=== PATIENT | female | born 1950 | race Caucasian/White ===

== ENCOUNTER 2017-07-29 05:38 | Day surgery (SDC) | payer MEDICARE, MEDICAID ==
[2017-07-28 15:36] LABS: BASOPHILS % (AUTO) 0.4 % (0-1); EOSINOPHILS # (AUTO) 0.1 X10'3 (0-0.9); EOSINOPHILS % (AUTO) 1.2 % (0-6); LYMPHOCYTES # (AUTO) 2.6 X10'3 (1.1-4.8); LYMPHOCYTES % (AUTO) 31.8 % (21-51); MEAN CORPUSCULAR HGB CONC 34.7 % (33.0-36.5); MEAN CORPUSCULAR VOLUME 89.2 FL (78-98); MONOCYTES # (AUTO) 0.7 X10'3 (0-0.9); NEUTROPHILS # (AUTO) 4.8 X10'3 (1.8-7.7); NEUTROPHILS % (AUTO) 57.6 % (42-75); PRE OP HEMATOCRIT 44.5 % (35.0-45.0); PRE OP HEMOGLOBIN 15.5 g/dL (12.0-16.0); PRE OP PLATELET COUNT 224 X10'3 (140-440); RED BLOOD COUNT 4.99 X10'6 (4.20-5.60)
[2017-07-28 15:59] LABS: ALBUMIN 4.2 G/DL (3.4-5.0); BLOOD UREA NITROGEN 19 MG/DL (7-18); BUN/CREATININE RATIO 22.9 (6.6-38.0); CALCIUM 10.1 MG/DL (8.5-10.1); CHLORIDE 102 MMOL/L (99-107); CREATININE 0.83 MG/DL (0.40-0.90); PRE OP ANION GAP 11 (8-16); PRE OP BILIRUB, TOTAL 0.3 MG/DL (0.0-1.0); PRE OP GLUCOSE 113 MG/DL (70-104); PRE OP POTASSIUM 3.7 MMOL/L (3.4-5.1); PRE OP SODIUM 143 MMOL/L (135-145); TOTAL CARBON DIOXIDE 29.8 MMOL/L (24-32); TOTAL PROTEIN 7.9 G/DL (6.4-8.2); eGFR 69 ML/MIN
[2017-07-28 16:00] LABS: ALBUMIN/GLOBULIN RATIO 1.1 (1.1-1.5); ALKALINE PHOSPHATASE 84 IU/L (46-116); PRE OP ALT 40 U/L (30-65); PRE OP AST 22 U/L (10-37)
[~2017-07-29] VITALS: Ht 162.6 cm; Wt 85.1 kg
[2017-07-29] VITALS (12 sets, daily range): BP systolic 92–114; BP diastolic 60–75
[~2017-07-29 05:38] MED LIST: EFF25T PO; HYDR25TA4 PO; MELO-100 PO; ZOLP10TA5 PO; ceFAZolin 2gm in dextrose, iso 100 ML IV ONE; famotidine 20mg tablet PO ONE; ringers solution, lacted 1,000 ML IV SCH
[2017-07-29] MEDS ORDERED: LIDOcaine 1% (10mg/ml) 2ml vial ONE (06:07)
[2017-07-29] MEDS ORDERED: BUPIVAcaine/PF 2.5 mg/ml (0.25%) 30ml vial ONE (06:41)
[2017-07-29] MEDS ORDERED: fentaNYL/PF 50MCG/1 ML 2ML syringe ONE (07:16)
[2017-07-29] MEDS ORDERED: MIDAZolam 5mg/5ml vial ONE (07:16)
[2017-07-29] MEDS ORDERED: ROPIVAcaine 0.5% (5mg/ml) 30ml vial ONE (07:17)
[2017-07-29] MEDS ORDERED: propofol inj 20 ML IV ONE (07:19)
[2017-07-29] MEDS ORDERED: dexamethasone sod phosphate 4mg/ml inj. ONE (07:37)
[2017-07-29] MEDS ORDERED: ondansetron/PF 4mg/2ml inj ONE (07:37)
[2017-07-29] MEDS ORDERED: sevoflurane 250ml liquid IH ONE (07:37)
[2017-07-29] MEDS ORDERED: ringers solution, lacted 1,000 ML IV SCH (09:07)
[2017-07-29] MEDS ORDERED: proCHLORperazine 10 MG/2 ml inj IV PRN (09:10)
[2017-07-29] MEDS ORDERED: ondansetron/PF 4mg/2ml inj IV PRN (09:10)
[2017-07-29] MEDS ORDERED: morphine 4 MG/ML inj SYRINge IV PRN ×2 (09:10)
[2017-07-29] MEDS ORDERED: meperidine/PF 50mg/ml syringe IV PRN ×3 (09:10)
[2017-07-29] MEDS ORDERED: HYDROcodone/acetaminophen 10/325mg tab PO PRN (09:40)
== END 2017-07-29 12:00 | disposition home or self-care (01) ==
LOC: PAS 05:38 → ORTHO 4S 10:32 → PAS 12:00
PROVIDERS: ATTEND Orthopaedic Surgery
DX: M75.121 Complete rotator cuff tear or rupture of right shoulder, not specified as traumatic (principal); M19.011 Primary osteoarthritis, right shoulder; M25.711 Osteophyte, right shoulder; M94.211 Chondromalacia, right shoulder; M75.51 Bursitis of right shoulder; G89.18 Other acute postprocedural pain; M75.81 Other shoulder lesions, right shoulder; E66.01 Morbid (severe) obesity due to excess calories; F32.9 Major depressive disorder, single episode, unspecified; Z68.32 Body mass index [BMI] 32.0-32.9, adult; Z79.2 Long term (current) use of antibiotics; Z90.710 Acquired absence of both cervix and uterus; Z90.89 Acquired absence of other organs; Z87.891 Personal history of nicotine dependence; Z72.89 Other problems related to lifestyle; Z96.653 Presence of artificial knee joint, bilateral; Z79.1 Long term (current) use of non-steroidal anti-inflammatories (NSAID); Z98.890 Other specified postprocedural states; Z79.899 Other long term (current) drug therapy
CPT/HCPCS: 29824; 29826; 29827; 36415; 64415; 80053; 85025; 93005; A4565; A6449; C1713; J0690; J1100; J2250; J2405; J2704; J2795; J3010; J3490; J7030; J7120; A7000

== ENCOUNTER 2021-07-14 07:32 | Inpatient (IN) | payer MEDICARE, MEDICAID ==
[2021-07-07 11:10] LABS: BASOPHILS # (AUTO) 0.1 X10'3 (0-0.2); BASOPHILS % (AUTO) 1.5 % (0-1); EOSINOPHILS % (AUTO) 0.8 % (0-6); LYMPHOCYTES # (AUTO) 1.6 X10'3 (1.1-4.8); LYMPHOCYTES % (AUTO) 28.3 % (21-51); MEAN CORPUSCULAR HEMOGLOBIN 29.4 PG (27.0-31.0); MEAN CORPUSCULAR HGB CONC 33.8 g/dL (33.0-36.5); MEAN CORPUSCULAR VOLUME 87.1 FL (78-98); MEAN PLATELET VOLUME 8.3 FL (7.4-10.4); MONOCYTES # (AUTO) 0.6 X10'3 (0-0.9); NEUTROPHILS # (AUTO) 3.3 X10'3 (1.8-7.7); NEUTROPHILS % (AUTO) 59.4 % (42-75); PRE OP HEMATOCRIT 43.3 % (35.0-45.0); PRE OP HEMOGLOBIN 14.6 g/dL (12.0-16.0); PRE OP PLATELET COUNT 230 X10'3 (140-440); RED BLOOD COUNT 4.97 X10'6 (4.20-5.60)
[2021-07-07 11:20] LABS: ALBUMIN 4.1 G/DL (3.4-5.0); ALBUMIN/GLOBULIN RATIO 1.2 (1.1-1.5); ALKALINE PHOSPHATASE 71 IU/L (46-116); BLOOD UREA NITROGEN 24 MG/DL (7-18); BUN/CREATININE RATIO 45.3 (6.6-38.0); CHLORIDE 102 MMOL/L (99-107); CREATININE 0.53 MG/DL (0.40-0.90); PRE OP ALT 33 U/L (30-65); PRE OP ANION GAP 7 (8-16); PRE OP AST 23 U/L (10-37); PRE OP BILIRUB, TOTAL 0.6 MG/DL (0.0-1.0); PRE OP GLUCOSE 101 MG/DL (70-104); PRE OP SODIUM 136 MMOL/L (135-145); TOTAL PROTEIN 7.5 G/DL (6.4-8.2); eGFR > 90 ML/MIN
[2021-07-07 11:32] LABS: PRE OP POTASSIUM 3.2 MMOL/L (3.4-5.1)
[~2021-07-14] VITALS: Ht 162.6 cm; Wt 83.8 kg
[2021-07-14] VITALS (18 sets, daily range): BP systolic 101–129; BP diastolic 60–89
[~2021-07-14 07:32] MED LIST changes: -EFF25T PO; -MELO-100 PO; -ceFAZolin 2gm in dextrose, iso 100 ML IV ONE; +cefazolin/dext.iso 2gm/50ml IV ONE; +tranexamic acid 650mg tablet PO ONE; +vancomycin/NS 1 GM in NS 250 ML IV ONE
[2021-07-14 10:20] LABS: ISTAT ANION GAP 10 (8-12); ISTAT BUN 26 mg/dL (7-18); ISTAT CL 102 mmol/L (99-107); ISTAT CREATININE 0.6 mg/dL (0.6-1.1); ISTAT GLUCOSE 95 mg/dL (70-105); ISTAT HGB 14.6 g/dl (12.0-16.0); ISTAT Hct 43 %PCV (35-48); ISTAT IONIZED CALCIUM 1.26 mmol/L (1.03-1.32); ISTAT NA 142 mmol/L (135-145); ISTAT TOTAL CO2 30 mmol/L (24-32); ISTAT eGFR > 90 ML/MIN; POC BUN/CREATININE RATIO 43.3 (6.6-38.0)
[2021-07-14] MEDS ORDERED: ketorolac trometh. 30mg/ml inj. ONE (12:02)
[2021-07-14] MEDS ORDERED: ROPIVAcaine 0.5% (5mg/ml) 30ml vial ONE ×2 (12:02→14:26)
[2021-07-14] MEDS ORDERED: vancomycin 1,000mg inj ONE (12:11)
[2021-07-14] MEDS ORDERED: midazolam 1 mg/ML 2ml injection ONE ×2 (12:37→13:36)
[2021-07-14] MEDS ORDERED: FENTANYL CITRATE/PF 50 MCG/1 ML VIAL ONE (12:37)
[2021-07-14] MEDS ORDERED: sevoflurane 250ml liquid IH ONE (13:10)
[2021-07-14] MEDS ORDERED: ringers solution, lacted 1,000 ML IV SCH (14:00)
[2021-07-14] MEDS ORDERED: ROPIVAcaine 0.2%/PF PUMP/bolus 545 ML INTERSCALE SCH (14:00)
[2021-07-14] MEDS ORDERED: ondansetron/PF 4mg/2ml inj IV PRN ×2 (14:00→15:10)
[2021-07-14] MEDS ORDERED: morphine 2 MG/ML inj. syringe IV PRN (14:00)
[2021-07-14] MEDS ORDERED: morphine 4 MG/ML inj SYRINge IV PRN (14:00)
[2021-07-14] MEDS ORDERED: meperidine/PF 25mg/ml syringe IV PRN ×3 (14:00)
[2021-07-14] MEDS ORDERED: ROPIVAcaine 0.2% (10 MG/5 ML) BOLUS INJECTION INTERSCALE PRN (14:00)
[2021-07-14] MEDS ORDERED: proCHLORperazine 10 MG/2 ml inj IV PRN (14:00)
[2021-07-14] MEDS ORDERED: ePHEDrine 50MG/ML INJ. ONE (14:26)
[2021-07-14] MEDS ORDERED: dexamethasone sod phosphate 4mg/ml inj. ONE (14:26)
[2021-07-14] MEDS ORDERED: propofol inj 20 ML IV ONE (14:26)
[2021-07-14] MEDS ORDERED: phenylephrine 10mg/ml inj. ONE (14:26)
[2021-07-14] MEDS ORDERED: ondansetron/PF 4mg/2ml inj ONE (14:26)
[2021-07-14] MEDS ORDERED: meperidine/PF 25mg/ml syringe ONE (14:50)
[2021-07-14] MEDS ORDERED: acetaminophen 1,000mg/100ml IV 100 ML IV ONE (14:51)
--- NOTE | 2021-07-14 15:03 | NUR ---
Received from OR via HOSPITAL BED , accompanied by Anesthesiologist DR MOONEY and report given by Anesthesiolgist. PT PRESENTS WITH PIV 18G RIGHT HAND, SHOULDER WRAP WITH PUWDER PACK AND ON-Q READY MARIANN, VSS. Addendum: 07/14/21 at 1524 by Rebecca Cordova RN, RN Amended: Links added.
[2021-07-14] MEDS ORDERED: bisacodyl 10mg suppository rectal RC PRN (15:10)
[2021-07-14] MEDS ORDERED: HYDROmorphone 1 mg/ml syringe IV PRN (15:10)
[2021-07-14] MEDS ORDERED: potassium cl 20mEq in 1/2 NS 1,000 ML IV SCH (15:10)
[2021-07-14] MEDS ORDERED: HYDROmorphone inj. 0.5 MG/0.5 ML DISP.SYRIN IV PRN (15:10)
[2021-07-14] MEDS ORDERED: oxyCODONE IR 5mg (immed. release) tablet PO PRN ×2 (15:10)
[2021-07-14] MEDS ORDERED: HYDROcodone/acetaminophen 10/325mg tab PO PRN (15:10)
[2021-07-14] MEDS ORDERED: magnesium hydroxide 30ml (MOM) UD suspension PO PRN (15:10)
[2021-07-14] MEDS ORDERED: diphenhydrAMINE 25mg capsule PO PRN ×2 (15:10)
[2021-07-14] MEDS ORDERED: acetaminophen 325mg tablet PO PRN (15:10)
[2021-07-14] MEDS ORDERED: zolpidem 5mg tablet PO PRN (15:25)
--- NOTE | 2021-07-14 15:47 | NUR ---
PT IS REFUSING TO STAY IN THE HOSPITAL AND IS ADAMANT ABOUT GOING HOME NOW. DR GIBSON CALLED AND HE WILL BE PUTTING IN ORDERS TO DC PT HOME. Addendum: 07/14/21 at 1602 by Rebecca Cordova RN, RN Amended: Links added.
[2021-07-14] MEDS ORDERED: ceFAZolin/D5W- 1GM premix 50 ML IV SCH (16:00)
--- NOTE | 2021-07-14 16:11 | NUR ---
PT IS REFUSING ON-Q BALL. Addendum: 07/14/21 at 1612 by Rebecca Cordova RN RN Amended: Links added.
--- NOTE | 2021-07-14 16:13 | NUR ---
PT IS SAYING THAT I AM NOT TREATING HER WELL. I EXPLAINED HOW THE ON-Q WORKS AND SHE DOES NOT WANT TO WEAR IT AROUND THE HOUSE. I ESPLAINED THAT WE DO NOT WANT HER TO HAVE PAIN WHEN SHE GOES HOME, I APOLOGIZED FOR ANYTHING THAT I DID OR SAID TO UPSET HER. PT HAS BEEN AGGITATED SINCE WAKING UP IN THE RECOVERY ROOM AND IS UPSET ABOUT DR TALBERT NOT PUTTING IN DC ORDERS FOR HER. Addendum: 07/14/21 at 1616 by Rebecca Cordova RN, RN Amended: Links added.
--- NOTE | 2021-07-14 17:11 | NUR ---
DR GIBSON IN PT ROOM BED 7 RECOVERY TALKING WITH PATIENT. Addendum: 07/14/21 at 1712 by Rebecca Cordova RN, RN Amended: Links added.
--- NOTE | 2021-07-14 17:42 | NUR ---
PT HAS DECIDED AT THIS TIME TO USE THE ON-Q. ON-Q HOOKED UP AND PT HAS BEEN EDUCATED ON HOW TO USE THE ON-Q. PT HAS BEEN GIVEN A PAMPHLET WITH DIRECTIONS AND REMOVAL OF ON-Q. PT HAS NO FURTHER QUESTIONS AT THIS TIME. Addendum: 07/14/21 at 1744 by Rebecca Cordova RN, RN Amended: Links added.
--- NOTE | 2021-07-14 17:53 | NUR ---
PATIENT DISCHARGED FROM PACU IN STABLE CONDITION AFTER WRITTEN AND VERBAL DISCHARGE INSTRUCTIONS GIVEN. PT EDUCATED ON ON-Q USE AND REMOVAL. PT EDUCATED ON INCENTIVE SPIROMETER. PATIENT GAVE VERBAL UNDERSTANDING OF INSTRUCTIONS GIVEN. PATIENT LEFT FACILITY VIA WHEELCHAIR WITH RN TO PT'S SON PRIVATE VEHICLE. Addendum: 07/14/21 at 1802 by Rebecca Cordova RN, RN Amended: Links added.
[2021-07-14] MEDS ORDERED: acetaminophen 325mg tablet PO SCH (20:00)
[2021-07-14] MEDS ORDERED: sennosides 8.6mg tablet PO SCH (21:00)
[2021-07-15] MEDS ORDERED: HYDROchlorothiazide 25mg tablet PO SCH (08:00)
[2021-07-15] MEDS ORDERED: aspirin 325mg tablet PO SCH (08:30)
[2021-07-16] MEDS ORDERED: acetaminophen 325mg tablet PO PRN (15:10)
== END 2021-07-14 17:53 | disposition home or self-care (01) | DRG 483 ==
LOC: PAS 07:32 → EDSTATUS 10:30 → SUR 3N 15:09 → PAS 17:53
PROVIDERS: ADMIT Orthopaedic Surgery; ATTEND Orthopaedic Surgery
PROC: 0RRK0JZ Replacement of Left Shoulder Joint with Synthetic Substitute, Open Approach (ICD-10-PCS; 2021-07-14)
PROC: 3E0T3BZ Introduction of Anesthetic Agent into Peripheral Nerves and Plexi, Percutaneous Approach (ICD-10-PCS; 2021-07-14)
PROC: 0RPK0JZ Removal of Synthetic Substitute from Left Shoulder Joint, Open Approach (ICD-10-PCS; principal; 2021-07-14 13:10)
DX: M25.312 Other instability, left shoulder (principal); F41.9 Anxiety disorder, unspecified; K21.9 Gastro-esophageal reflux disease without esophagitis; E78.5 Hyperlipidemia, unspecified; E66.01 Morbid (severe) obesity due to excess calories; Z68.32 Body mass index [BMI] 32.0-32.9, adult; M19.011 Primary osteoarthritis, right shoulder; M19.012 Primary osteoarthritis, left shoulder; F32.A Depression, unspecified; Z96.612 Presence of left artificial shoulder joint; Z88.8 Allergy status to other drugs, medicaments and biological substances; Z79.899 Other long term (current) drug therapy; Z90.710 Acquired absence of both cervix and uterus; Z98.890 Other specified postprocedural states; Z87.891 Personal history of nicotine dependence; Z72.89 Other problems related to lifestyle; Z79.82 Long term (current) use of aspirin; Z96.653 Presence of artificial knee joint, bilateral; Z20.822 Contact with and (suspected) exposure to COVID-19; M65.9 Synovitis and tenosynovitis, unspecified; G89.29 Other chronic pain
CPT/HCPCS: 23474; 36415; 64416; 80047; 80053; 82948; 85025; 87070; 87075; 87081; C1713; C1776; J0131; J0690; J1100; J1885; J2175; J2250; J2370; J2405; J2704; J2795; J3010; J3370; J3490; J7120; U0003; U0005; 76942; A4565; A4618; A7000; G0378